=== PATIENT | male | born 1960 | race Caucasian/White ===

== ENCOUNTER 2017-04-23 17:58 | Inpatient (IN) | payer OTHER, MEDICAID ==
[~2017-04-23] VITALS: Ht 162.6 cm; Wt 66.8 kg
[2017-04-23 18:13] VITALS: BP_SYST 128
[2017-04-23] MEDS ORDERED: NACL 0.9% 1,000 ML IV SCH (18:33)
[2017-04-23] MEDS ORDERED: VANCOMYCIN HCL 1,000 MG in D5W 250 ML IV ONE (18:45)
[2017-04-23] MEDS ORDERED: PIPERACILLIN/TAZO 3.38 GM in D5W 50 ML IV ONE (18:45)
[2017-04-23 18:55] LABS: BASOPHILS % (AUTO) 0.6 % (0.0-2.0); EOSINOPHILS # (AUTO) 0.5 K/uL (0.0-0.4); EOSINOPHILS % (AUTO) 7.7 % (0.0-4.0); HEMATOCRIT 45.1 % (36-54); LYMPHOCYTES # (AUTO) 1.5 K/uL (1.0-5.5); LYMPHOCYTES % (AUTO) 21.9 % (20.5-51.5); MEAN CORPUSCULAR HEMOGLOBIN 31 pg (27-31); MEAN CORPUSCULAR HGB CONC 33 % (32-36); MEAN CORPUSCULAR VOLUME 94 fL (79.0-98.0); MONOCYTES # (AUTO) 0.9 K/uL (0.0-1.0); MONOCYTES % (AUTO) 12.9 % (1.7-9.3); NEUTROPHILS # (AUTO) 3.8 K/uL (1.8-7.7); NEUTROPHILS % (AUTO) 56.9 % (40.0-70.0); PLATELET COUNT (AUTO) 255 K/uL (130-430); RED CELL DISTRIBUTION WIDTH 12.7 % (9.0-15.0); WHITE BLOOD COUNT (AUTO) 6.7 K/uL (4.8-10.8)
[2017-04-23] MEDS ORDERED: PIPERACILLIN/TAZOBACTAM 3.375 GM/VIAL (ZOSYN) IV ONE (18:55)
[2017-04-23 19:01] LABS: PROTHROMBIN TIME 10.4 SECS (9.5-12.5)
[2017-04-23] MEDS: MORPHINE 4 MG/ML INJ. SYRINGE IVP ONE ×2 (19:05→19:10)
[2017-04-23] MEDS: ONDANSETRON HCL 4 MG/2 ML VIAL IVP ONE ×2 (19:06→19:10)
[2017-04-23 19:11] LABS: CALCIUM 8.7 mg/dL (8.4-11.0); CREATININE 0.83 mg/dL (0.55-1.30)
[2017-04-23] MEDS ORDERED: VANCOMYCIN HCL 1000 MG/VIAL IV ONE (19:35)
[2017-04-23 20:45] VITALS: BP_SYST 106
[2017-04-23 20:56] VITALS: BP_SYST 106
[2017-04-23] MEDS ORDERED: cefTRIAXone 1 GM IVPB PREMIX 50 ML IV ONE (20:56)
[2017-04-23] MEDS ORDERED: MAGNESIUM SULFATE 50 ML IV PRN (21:15)
[2017-04-23] MEDS ORDERED: DOCUSATE SODIUM 100 MG CAPSULE PO PRN (21:15)
[2017-04-23] MEDS ORDERED: ACETAMINOPHEN 325 MG TABLET PO PRN (21:15)
[2017-04-23] MEDS ORDERED: LORazepam 2 MG/ML VIAL IVP PRN (21:15)
[2017-04-23] MEDS ORDERED: POTASSIUM CHLORIDE 10 MEQ TAB.PRT.SR PO PRN (21:15)
[2017-04-23] MEDS ORDERED: ONDANSETRON HCL 4 MG/2 ML VIAL IVP PRN (21:15)
[2017-04-23] MEDS: MORPHINE 2 MG/ML INJ. SYRINGE IVP PRN (22:22)
[2017-04-23] MEDS: NACL 0.9% 1,000 ML IV SCH (22:44)
[2017-04-23] MEDS: ZOLPIDEM TARTRATE 5 MG TABLET PO PRN (22:51)
[2017-04-24] VITALS (7 sets, daily range): BP systolic 111–146
[2017-04-24] MEDS: MORPHINE 2 MG/ML INJ. SYRINGE IVP PRN ×4 (06:59→18:09)
[2017-04-24 07:03] LABS: BASOPHILS % (AUTO) 0.9 % (0.0-2.0); EOSINOPHILS # (AUTO) 0.6 K/uL (0.0-0.4); EOSINOPHILS % (AUTO) 10.5 % (0.0-4.0); HEMATOCRIT 43.6 % (36-54); HEMOGLOBIN 14.8 g/dL (14.0-18.0); LYMPHOCYTES # (AUTO) 1.3 K/uL (1.0-5.5); LYMPHOCYTES % (AUTO) 23.7 % (20.5-51.5); MEAN CORPUSCULAR HEMOGLOBIN 32 pg (27-31); MEAN CORPUSCULAR HGB CONC 34 % (32-36); MEAN CORPUSCULAR VOLUME 94 fL (79.0-98.0); MONOCYTES # (AUTO) 0.6 K/uL (0.0-1.0); MONOCYTES % (AUTO) 11.8 % (1.7-9.3); NEUTROPHILS # (AUTO) 2.8 K/uL (1.8-7.7); NEUTROPHILS % (AUTO) 53.1 % (40.0-70.0); PLATELET COUNT (AUTO) 217 K/uL (130-430); RED BLOOD CELL COUNT(AUTO) 4.64 MIL/uL (4.2-6.2); RED CELL DISTRIBUTION WIDTH 12.7 % (9.0-15.0); WHITE BLOOD COUNT (AUTO) 5.3 K/uL (4.8-10.8)
[2017-04-24 07:13] LABS: CALCIUM 7.9 mg/dL (8.4-11.0); CREATININE 0.81 mg/dL (0.55-1.30); POTASSIUM 4.2 mmol/L (3.5-5.1)
[2017-04-24] MEDS: cefTRIAXone 1 GM in D5W 50 ML IV SCH (08:42)
[2017-04-24] MEDS: CLINDAMYCIN 600 MG in D5W 50 ML IV SCH ×3 (09:56→21:07)
[2017-04-24] MEDS: NACL 0.9% 1,000 ML IV SCH (12:44)
[2017-04-25] MEDS: NACL 0.9% 1,000 ML IV SCH ×2 (02:11→10:45)
[2017-04-25] MEDS: CLINDAMYCIN 600 MG in D5W 50 ML IV SCH ×4 (02:13→21:30)
[2017-04-25 04:26] VITALS: BP_SYST 118
[2017-04-25] MEDS: HYDROcodone/ACETAMIN 10-325 MG TAB PO PRN ×3 (06:22→19:05)
[2017-04-25 06:57] LABS: CALCIUM 8.2 mg/dL (8.4-11.0); CREATININE 0.88 mg/dL (0.55-1.30)
[2017-04-25 06:58] LABS: BASOPHILS % (AUTO) 0.6 % (0.0-2.0); EOSINOPHILS # (AUTO) 0.6 K/uL (0.0-0.4); EOSINOPHILS % (AUTO) 9.4 % (0.0-4.0); HEMATOCRIT 45.3 % (36-54); HEMOGLOBIN 15.2 g/dL (14.0-18.0); LYMPHOCYTES # (AUTO) 1.4 K/uL (1.0-5.5); LYMPHOCYTES % (AUTO) 20.5 % (20.5-51.5); MEAN CORPUSCULAR HEMOGLOBIN 32 pg (27-31); MEAN CORPUSCULAR HGB CONC 34 % (32-36); MEAN CORPUSCULAR VOLUME 94 fL (79.0-98.0); MONOCYTES # (AUTO) 0.6 K/uL (0.0-1.0); NEUTROPHILS # (AUTO) 4.1 K/uL (1.8-7.7); NEUTROPHILS % (AUTO) 60.5 % (40.0-70.0); PLATELET COUNT (AUTO) 247 K/uL (130-430); WHITE BLOOD COUNT (AUTO) 6.7 K/uL (4.8-10.8)
[2017-04-25 08:16] VITALS: BP_SYST 126
[2017-04-25] MEDS: cefTRIAXone 1 GM in D5W 50 ML IV SCH (10:16)
[2017-04-25 12:33] VITALS: BP_SYST 130
[2017-04-25 16:12] VITALS: BP_SYST 142
[2017-04-25 20:23] VITALS: BP_SYST 138
[2017-04-25] MEDS: ZOLPIDEM TARTRATE 5 MG TABLET PO PRN (21:28)
[2017-04-26 00:23] VITALS: BP_SYST 108
[2017-04-26] MEDS: NACL 0.9% 1,000 ML IV SCH ×2 (02:55→11:45)
[2017-04-26] MEDS: CLINDAMYCIN 600 MG in D5W 50 ML IV SCH ×2 (02:58→09:21)
[2017-04-26 04:09] VITALS: BP_SYST 121
[2017-04-26] MEDS: HYDROcodone/ACETAMIN 10-325 MG TAB PO PRN (05:58)
[2017-04-26 07:05] LABS: BASOPHILS % (AUTO) 0.8 % (0.0-2.0); EOSINOPHILS # (AUTO) 0.6 K/uL (0.0-0.4); EOSINOPHILS % (AUTO) 10.8 % (0.0-4.0); HEMATOCRIT 49.3 % (36-54); HEMOGLOBIN 16.4 g/dL (14.0-18.0); LYMPHOCYTES # (AUTO) 1.3 K/uL (1.0-5.5); LYMPHOCYTES % (AUTO) 22.6 % (20.5-51.5); MEAN CORPUSCULAR HEMOGLOBIN 31 pg (27-31); MEAN CORPUSCULAR HGB CONC 33 % (32-36); MEAN CORPUSCULAR VOLUME 94 fL (79.0-98.0); MONOCYTES # (AUTO) 0.6 K/uL (0.0-1.0); NEUTROPHILS # (AUTO) 3.1 K/uL (1.8-7.7); NEUTROPHILS % (AUTO) 54.8 % (40.0-70.0); PLATELET COUNT (AUTO) 266 K/uL (130-430); RED BLOOD CELL COUNT(AUTO) 5.24 MIL/uL (4.2-6.2); RED CELL DISTRIBUTION WIDTH 12.8 % (9.0-15.0); WHITE BLOOD COUNT (AUTO) 5.6 K/uL (4.8-10.8)
[2017-04-26 07:08] LABS: CALCIUM 8.4 mg/dL (8.4-11.0); CREATININE 0.86 mg/dL (0.55-1.30); POTASSIUM 4.3 mmol/L (3.5-5.1)
[2017-04-26 08:17] VITALS: BP_SYST 132
[2017-04-26] MEDS ORDERED: CLIN-77 PO (09:36)
[2017-04-26] MEDS: cefTRIAXone 1 GM in D5W 50 ML IV SCH (10:49)
[2017-04-26 11:30] VITALS: BP_SYST 112
[2017-04-26 12:00] VITALS: BP_SYST 121
== END 2017-04-26 12:55 | disposition home or self-care (01) | DRG 603 ==
LOC: EDBD 17:58 → SED 17:58 → SMU 20:13
PROVIDERS: ADMIT General Practice; ATTEND General Practice
DX: L03.113 Cellulitis of right upper limb (principal); F90.9 Attention-deficit hyperactivity disorder, unspecified type; F43.10 Post-traumatic stress disorder, unspecified; F12.90 Cannabis use, unspecified, uncomplicated; W57.XXXA Bitten or stung by nonvenomous insect and other nonvenomous arthropods, initial encounter; Y93.89 Activity, other specified; Y92.89 Other specified places as the place of occurrence of the external cause; Y99.8 Other external cause status
CPT/HCPCS: 36415; 80048; 83605; 83735-TC; 85025; 85610-TC; 85730-TC; 87040-TC; 87086; 96365; 96366; 96367; 96375; 99285; J0696; J2270; J2405; J2543; J3370; J3490; J7030; J7060

== ENCOUNTER 2017-05-06 17:43 | Emergency (ER) | payer OTHER, MEDICAID ==
[~2017-05-06] VITALS: Ht 160 cm; Wt 63.5 kg
[~2017-05-06 17:43] MED LIST: CLIN-77 PO
[2017-05-06 17:45] VITALS: BP_SYST 125
[2017-05-06] MEDS ORDERED: KETOROLAC TROMETHAMINE 60 MG/2 ML VIAL IM ONE (18:45)
[2017-05-06 19:12] VITALS: BP_SYST 128
== END 2017-05-06 19:12 | disposition home or self-care (01) ==
LOC: SED 17:43
DX: S29.012A Strain of muscle and tendon of back wall of thorax, initial encounter (principal); S39.012A Strain of muscle, fascia and tendon of lower back, initial encounter; M79.1 Myalgia; F43.10 Post-traumatic stress disorder, unspecified; F32.9 Major depressive disorder, single episode, unspecified; F90.9 Attention-deficit hyperactivity disorder, unspecified type; Y08.89XA Assault by other specified means, initial encounter; Y93.89 Activity, other specified; Y92.89 Other specified places as the place of occurrence of the external cause; Y99.8 Other external cause status
CPT/HCPCS: 99283; J1885

== ENCOUNTER 2017-12-24 15:35 | Emergency (ER) | payer OTHER ==
[~2017-12-24] VITALS: Ht 160 cm; Wt 61.2 kg
[2017-12-24] MEDS ORDERED: AMOXICILLIN/CLAVULANATE POTASSIUM 875 MG TABLET PO ONE (16:45)
[2017-12-24] MEDS ORDERED: SULFAMETHOXAZOLE/TRIMETHOPR DS 1 TABLET PO ONE (16:45)
[2017-12-24 17:27] VITALS: BP_SYST 100
[2017-12-24] MEDS ORDERED: IBUPROFEN 600 MG TABLET PO ONE (17:30)
== END 2017-12-24 17:27 | disposition home or self-care (01) ==
LOC: SED 15:35
DX: L03.113 Cellulitis of right upper limb (principal); F43.10 Post-traumatic stress disorder, unspecified; F90.9 Attention-deficit hyperactivity disorder, unspecified type
CPT/HCPCS: 99283

== ENCOUNTER 2019-02-02 21:11 | Emergency (ER) | payer OTHER, MEDICAID ==
[~2019-02-02] VITALS: Ht 160 cm; Wt 61.2 kg
[~2019-02-02 21:11] MED LIST changes: -CLIN-77 PO; +CLIN300C11 PO
[2019-02-02 21:15] VITALS: BP_SYST 110
[2019-02-02] MEDS ORDERED: KETOROLAC TROMETHAMINE 30 MG VIAL IM ONE (23:00)
[2019-02-02] MEDS ORDERED: ACETAMINOPHEN 500 MG TABLET PO ONE (23:45)
[2019-02-03 00:10] VITALS: BP_SYST 110
== END 2019-02-03 00:10 | disposition home or self-care (01) ==
LOC: SED 21:11
DX: S93.402A Sprain of unspecified ligament of left ankle, initial encounter (principal); F43.10 Post-traumatic stress disorder, unspecified; F32.9 Major depressive disorder, single episode, unspecified; F90.9 Attention-deficit hyperactivity disorder, unspecified type; X50.9XXA Other and unspecified overexertion or strenuous movements or postures, initial encounter; Y93.89 Activity, other specified; Y92.89 Other specified places as the place of occurrence of the external cause; Y99.8 Other external cause status
CPT/HCPCS: 73590; 73610; 96372; 99283; J1885

== ENCOUNTER 2022-03-21 13:43 | Emergency (ER) | payer OTHER, MEDICAID ==
[~2022-03-21] VITALS: Ht 165.1 cm; Wt 72.6 kg
[~2022-03-21 13:43] MED LIST changes: +CLIN-142 PO; -CLIN300C11 PO
[2022-03-21 13:50] VITALS: BP_SYST 115
--- NOTE | 2022-03-21 13:50 | NUR ---
TRIAGED ON AMBULANCE RAMP, PT SOMEWHAT COOPERATIVE. WILL ASSUME CARE
--- NOTE | 2022-03-21 14:05 | NUR ---
SING OUT TO RAMP TO EVALUATE PT .
--- NOTE | 2022-03-21 14:21 | NUR ---
SPOKE WITH [employer] AND THEY WILL SEND AN OFFICER TO EVALUATE PT.
[2022-03-21] MEDS ORDERED: KETOROLAC TROMETHAMINE 60 MG/2 ML VIAL IM ONE (14:30)
--- NOTE | 2022-03-21 14:57 | NUR ---
OFFICER [employer] HERE TO INTERVIEW PT.
--- NOTE | 2022-03-21 15:38 | NUR ---
PT SCREAMING AT STAFF AND OFFICER ON AMBULANCE RAMP. PT ATTEMPTING TO SMOKE ON AMBULANCE RAMP AND EXPLAINED TO HIM THAT HE CAN NOT DO THAT NEAR OUR DOORS. PT ABLE TO WALK UP TO AMBULANCE DOORS AND CALL ON PHONE.
--- NOTE | 2022-03-21 16:10 | NUR ---
PT STATES HE WAS DISSATIFIED WITH POLICE THAT CAME TO VISIT HIM. PT IS SCREAMING AT STAFF AND SMOKING WHEN WE TOLD HIM NOT TO SMOKE NEAR DOOR.
[2022-03-21] MEDS ORDERED: METH-634 PO (16:30)
[2022-03-21] MEDS ORDERED: IBUP-1969 PO (16:30)
[2022-03-21] MEDS ORDERED: TRAM50TA2 PO (16:30)
--- NOTE | 2022-03-21 16:52 | NUR ---
Patient given written and verbal discharge instructions and verbalizes understanding. ER MD discussed with patient the results and treatment provided. Patient in stable condition. ID arm band removed. Rx of IBUPROFEN, ROBAXIN, TRAMADOL given. Patient educated on pain management and to follow up with PMD. Pain Scale 0/10. Opportunity for questions provided and answered. Medication side effect fact sheet provided.
[2022-03-21 16:54] VITALS: BP_SYST 131
== END 2022-03-21 16:52 | disposition home or self-care (01) ==
LOC: SED 13:43
DX: S20.212A Contusion of left front wall of thorax, initial encounter (principal); S70.02XA Contusion of left hip, initial encounter; M54.30 Sciatica, unspecified side; I10 Essential (primary) hypertension; Y04.8XXA Assault by other bodily force, initial encounter; Y93.89 Activity, other specified; Y92.89 Other specified places as the place of occurrence of the external cause; Y99.8 Other external cause status
CPT/HCPCS: 71045; 72100; 72170; 73502; 96372; 99284; J1885